=== PATIENT | male | born 1980 | race Caucasian/White ===

== ENCOUNTER 2022-05-28 07:54 | Emergency (ER) | payer BC | END 2022-05-28 10:00 | disposition home or self-care (01) | LOC: FB.ED 07:54 | DX: M25.561 Pain in right knee (principal); Z88.0 Allergy status to penicillin | CPT/HCPCS: 36415; 73562-RT; 85379; 99283 ==

== ENCOUNTER 2025-03-17 14:35 | Inpatient (IN) | payer BC ==
[2025-03-17] MEDS: Ketorolac 30 MG/ML SDV IVPUSH ONE (14:50)
[2025-03-17] MEDS: Ondansetron 4 MG/2 ML SDV IVPUSH ONE (14:50)
[2025-03-17 15:00] LABS: HEMOGLOBIN 14.8 g/dL (12.9-17.7); MEAN CORPUSCULAR HEMOGLOBIN 30.1 pg (27.0-33.3); MEAN CORPUSCULAR HGB CONC 34.4 g/dL (28.7-35.3); MEAN CORPUSCULAR VOLUME 87.5 fL (80.8-98.7); MEAN PLATELET VOLUME 7.7 fL (6.7-11.0); PLATELET COUNT,PLT 335 x10(3)uL (117-477); RED BLOOD CELL COUNT 4.92 x10(6)uL (3.90-5.90); RED CELL DISTRIBUTION WIDTH 13.5 % (12.4-15.0); WHITE BLOOD CELL COUNT,WBC 14.1 x10-3/uL (3.2-10.1)
[2025-03-17 15:04] LABS: BLOOD UREA NITROGEN,BUN 19 mg/dL (7-18); BUN/CREATININE RATIO 13.6 (9-20); CALCIUM 9.1 mg/dL (8.6-10.2); CARBON DIOXIDE,CO2 24 mmol/L (21-32); CHLORIDE,CL 99 mmol/L (100-110); CREATININE 1.4 mg/dL (0.70-1.30); EST CRCL DRUG DOSING (CG) 55.79 mL/min; ESTIMATED GFR 63 mL/min (>60); GLUCOSE RANDOM 178 mg/dL (80-116); POTASSIUM,K 3.3 mmol/L (3.5-5.3); SODIUM,NA 135 mmol/L (135-145)
[2025-03-17 15:06] LABS: LIPASE 31 U/L (16-77)
[2025-03-17 15:08] LABS: C-REACTIVE PROTEIN < 0.50 mg/dL (<0.50)
[2025-03-17 15:10] LABS: A/G RATIO 1.1; ALANINE AMINOTRANSFERASE,ALT 32 U/L (12-36); ALBUMIN 3.8 g/dL (3.5-5.2); ALKALINE PHOSPHATASE 105 IU/L (56-112); ASPARTATE AMNIOTRANSFERASE,AST 22 IU/L (5-25); BAND PERCENT MAN 2 % (0-6); BILIRUBIN TOTAL 0.5 mg/dL (0.1-1.3); LYMPHOCYTES PERCENT MAN 6 % (13-37); MONOCYTES PERCENT MAN 6 % (4-12); PROTEIN TOTAL,TP 7.3 g/dL (6.0-8.0); SEG NEUTROPHILS PERCENT MAN 86 % (46-82)
[2025-03-17] MEDS: Morphine 4 MG/ML VIAL IVPUSH ONE (16:48)
[2025-03-17] MEDS: Metoclopramide 10 MG/2 ML SDV IVPUSH ONE (16:54)
[2025-03-17] MEDS: metroNIDAZOLE/Normal Saline 500 MG in Premix Bag 1 BAG IV SCH (16:56)
[2025-03-17] MEDS: Levofloxacin/Dextrose 5%-Water 750 MG in Premix Bag 1 BAG IV ONE (17:12)
[2025-03-17 17:36] LABS: BILIRUBIN,URINE NEGATIVE (NEGATIVE); GLUCOSE,URINE 50 mg/dL (NORMAL); KETONES,URINE NEGATIVE (NEGATIVE); LEUKOCYTE ESTERASE,URINE NEGATIVE (NEGATIVE); NITRITE,URINE NEGATIVE (NEGATIVE); OCCULT BLOOD,URINE NEGATIVE (NEGATIVE); PROTEIN,URINE NEGATIVE (NEGATIVE); UROBILINOGEN,URINE NORMAL (NEGATIVE)
[2025-03-17 17:37] LABS: APPEARANCE,URINE CLEAR (CLEAR); BACTERIA,URINE FEW (NS); COLOR,URINE YELLOW (YELLOW); RBC,URINE 0-5 (0-5); SQUAMOUS EPITHELIAL CELLS,UR FEW (NS,R,O); WBC,URINE 0-5 (0-5)
[2025-03-17] MEDS: Sodium Chloride 0.9% 1,000 ML IV ONE (18:00)
[2025-03-17] MEDS: Potassium Chloride 20 MEQ in Premix Bag 1 BAG IV ONE (19:19)
[2025-03-17] MEDS ORDERED: Morphine 4 MG/ML VIAL IVPUSH PRN (19:24)
[2025-03-17] MEDS ORDERED: Ondansetron 4 MG/2 ML SDV IVPUSH PRN (19:26)
[2025-03-17] MEDS ORDERED: D5 1/2 NS w/ 10 mEq/L KCl 1,000 ML IV SCH (19:30)
[2025-03-17] MEDS: Acetaminophen 500 MG Tab PO SCH (21:59)
[2025-03-17] MEDS: Enoxaparin 40 MG/0.4 ML Syringe SUBCUT SCH (22:00)
[2025-03-17] MEDS: Ketorolac 30 MG/ML SDV IVPUSH SCH (22:02)
[2025-03-17] MEDS: D5 1/2 NS w/ 20 mEq/L KCl 1,000 ML IV SCH (22:10)
[2025-03-18] MEDS: metroNIDAZOLE/Normal Saline 500 MG in Premix Bag 1 BAG IV SCH ×2 (03:10→10:40)
[2025-03-18] MEDS: metroNIDAZOLE/Normal Saline 100 ML ONE (03:40)
[2025-03-18] MEDS: Ketorolac 30 MG/ML SDV IVPUSH SCH ×2 (03:41→04:16)
[2025-03-18] MEDS: Acetaminophen 500 MG Tab PO SCH (04:16)
[2025-03-18 06:51] LABS: HEMOGLOBIN 14.5 g/dL (12.9-17.7); MEAN CORPUSCULAR HEMOGLOBIN 30.3 pg (27.0-33.3); MEAN CORPUSCULAR HGB CONC 34.5 g/dL (28.7-35.3); MEAN PLATELET VOLUME 7.7 fL (6.7-11.0); PLATELET COUNT,PLT 282 x10(3)uL (117-477); RED BLOOD CELL COUNT 4.78 x10(6)uL (3.90-5.90); RED CELL DISTRIBUTION WIDTH 13.4 % (12.4-15.0); WHITE BLOOD CELL COUNT,WBC 15.2 x10-3/uL (3.2-10.1)
[2025-03-18 06:57] LABS: BLOOD UREA NITROGEN,BUN 14 mg/dL (7-18); BUN/CREATININE RATIO 11.7 (9-20); CARBON DIOXIDE,CO2 23 mmol/L (21-32); CHLORIDE,CL 105 mmol/L (100-110); CREATININE 1.2 mg/dL (0.70-1.30); EST CRCL DRUG DOSING (CG) 67.62 mL/min; ESTIMATED GFR 76 mL/min (>60); GLUCOSE RANDOM 123 mg/dL (80-116); POTASSIUM,K 3.8 mmol/L (3.5-5.3); SODIUM,NA 138 mmol/L (135-145)
[2025-03-18 07:28] LABS: BAND PERCENT MAN 5 % (0-6); LYMPHOCYTES PERCENT MAN 3 % (13-37); MONOCYTES PERCENT MAN 4 % (4-12); SEG NEUTROPHILS PERCENT MAN 88 % (46-82)
[2025-03-18] MEDS ORDERED: Non-Formulary Medication 1 Each (Terbinafine Hcl [Terbinafine Hcl] 250 MG Tablet) PO SCH ×2 (09:00)
[2025-03-18] MEDS: atorvaSTATin 20 MG Tab PO SCH (09:23)
[2025-03-18] MEDS: FLUoxetine 20 MG Cap PO SCH (09:24)
[2025-03-18] MEDS: Sodium Chloride 0.9% 10 ML Syringe FLUSH PRN (09:25)
[2025-03-18] MEDS: Levofloxacin/Dextrose 5%-Water 750 MG in Premix Bag 1 BAG IV SCH (16:47)
[2025-03-18] MEDS: Zolpidem 5 MG Tab PO PRN (21:35)
[2025-03-19 06:47] LABS: HEMATOCRIT 40.4 % (38.3-50.1); MEAN CORPUSCULAR HEMOGLOBIN 30.6 pg (27.0-33.3); MEAN CORPUSCULAR HGB CONC 34.7 g/dL (28.7-35.3); MEAN CORPUSCULAR VOLUME 88.1 fL (80.8-98.7); MEAN PLATELET VOLUME 7.7 fL (6.7-11.0); PLATELET COUNT,PLT 276 x10(3)uL (117-477); RED BLOOD CELL COUNT 4.59 x10(6)uL (3.90-5.90); RED CELL DISTRIBUTION WIDTH 13.5 % (12.4-15.0); WHITE BLOOD CELL COUNT,WBC 16.9 x10-3/uL (3.2-10.1)
[2025-03-19 06:54] LABS: A/G RATIO 0.8; ALANINE AMINOTRANSFERASE,ALT 20 U/L (12-36); ALKALINE PHOSPHATASE 86 IU/L (56-112); ASPARTATE AMNIOTRANSFERASE,AST 18 IU/L (5-25); BILIRUBIN TOTAL 0.6 mg/dL (0.1-1.3); BLOOD UREA NITROGEN,BUN 9 mg/dL (7-18); BUN/CREATININE RATIO 7.5 (9-20); CALCIUM 9.1 mg/dL (8.6-10.2); CARBON DIOXIDE,CO2 24 mmol/L (21-32); CHLORIDE,CL 105 mmol/L (100-110); CREATININE 1.2 mg/dL (0.70-1.30); EST CRCL DRUG DOSING (CG) 67.62 mL/min; ESTIMATED GFR 76 mL/min (>60); GLUCOSE RANDOM 116 mg/dL (80-116); POTASSIUM,K 3.9 mmol/L (3.5-5.3); SODIUM,NA 138 mmol/L (135-145)
[2025-03-19 06:59] LABS: BAND PERCENT MAN 1 % (0-6); LYMPHOCYTES PERCENT MAN 6 % (13-37); MONOCYTES PERCENT MAN 5 % (4-12); SEG NEUTROPHILS PERCENT MAN 88 % (46-82)
[2025-03-19] MEDS: Iopamidol 755 Mg/ML 100 ML Bottle IV SCH (09:25)
[2025-03-19 14:02] VITALS: BP 124/78; PULSE 96
== END 2025-03-19 14:40 | DRG 244 ==
LOC: FB.ED 14:35 → FB.MS 17:23 → OBSVTOIN 03-18 14:42
PROVIDERS: ADMIT Family Medicine; ATTEND Family Medicine
DX: K57.20 Diverticulitis of large intestine with perforation and abscess without bleeding (principal); E78.00 Pure hypercholesterolemia, unspecified; F41.9 Anxiety disorder, unspecified; E86.0 Dehydration; E87.6 Hypokalemia; E83.42 Hypomagnesemia; Z86.16 Personal history of COVID-19; Z79.899 Other long term (current) drug therapy; Z72.0 Tobacco use; Z88.0 Allergy status to penicillin
CPT/HCPCS: 36415; 74176; 74177; 80048; 80053; 81001; 83605; 83690; 83735; 85025; 86140; 94150; 96365; 96366; 96367; 96368; 96372; 96375; 96376; 99222; 99239; 99285; 99285-25; A9270-GY; J1650; J1836; J1885; J1956; J2270; J2405; J2765; J3480; J7030; Q9967